=== PATIENT | male | born 1990 | race Caucasian/White ===

== ENCOUNTER 2016-12-23 21:11 | Emergency (ER) ==
[2016-12-23 21:14] VITALS: BP 148/104; TEMP 97.6; BMI 20.7
[2016-12-23] MEDS ORDERED: DEMEROL 25 MG/ML SYRINGE IVP STA (21:21)
[2016-12-23] MEDS ORDERED: ZOFRAN 4 MG/2 ML IVP STA (21:21)
[2016-12-23] MEDS ORDERED: SODIUM CHLORIDE 500 ML IV STA (21:21)
--- NOTE | 2016-12-23 21:25 | ED.PDOC ---
General ED Provider: Dr. KLEVER CARLOS Chief Complaint: Abdominal Pain Stated Complaint: Been hurting in the middle of the belly, cramping type, tight feeling. nausea and vomings Time Seen by Physician: 21:22 Mode of Arrival: Walk-In Information Source: Patient, Family Primary Care Provider: KLEVER CARLOS-[facility] Nursing and Triage Documentation Reviewed and Agree: Yes GI Complaint Exam - Abdominal Pain Complaint/Exam Onset: Gradual Symptoms Are: Still present Timing: Constant Initial Severity: Moderate Current Severity: Severe Location of Pain: Epigastric Radiates To: Reports: Back, Flank Character: Reports: Dull, Aching Aggravating: Reports: Movement, Food, Deep breaths Alleviating: Reports: None Associated Signs and Symptoms: Reports: Decreased urine output, Nausea, Vomiting. Denies: Diaphoresis, Fever, Cough, Chest pain, Dizziness, Back pain, Constipation, Blood in stool, Dysuria, Urinary frequency, Decreased appetite, Discharge, Diarrhea, Decreased activity AAA Risk Factors: Reports: None Cardiac Risk Factors: Reports: None Testicular Torsion Risk Factors: Reports: None Surgical Obstruction Risk Factors: Reports: None Related Surgical History: Reports: None Abdominal Findings: Absent: Pulsatile mass, Abdominal distention, Unequal femoral pulses Differential Diagnoses: Gastroenteritis, PUD Review of Systems - Review Of Systems Constitutional: Reports: Fever, Weakness Eyes: Reports: No symptoms Ears, Nose, Mouth, Throat: Reports: No symptoms Respiratory: Reports: No symptoms Cardiac: Reports: No symptoms GI: Reports: Abdominal pain, Nausea, Vomiting : Reports: No symptoms Musculoskeletal: Reports: No symptoms Skin: Reports: No symptoms Neurological: Reports: No symptoms Endocrine: Reports: No symptoms Hematologic/Lymphatic: Reports: No symptoms All Other Systems: Reviewed and Negative Past Medical History - Past Medical History Previously Healthy: Yes Endocrine: Reports: None Cardiovascular: Reports: None Respiratory: Reports: None Hematological: Reports: None Gastrointestinal: Reports: None Genitourinary: Reports: None Neuro/Psych: Reports: None Musculoskeletal: Reports: None Cancer: Reports: None - Surgical History General Surgical History: Reports: None - Family History Family History: Reports: Unknown - Social History Smoking Status: Current every day smoker Smoking Cessation Counseling Time: > 3 min - 10 min Hx Substance Use: No Alcohol Screening: None - Immunizations Tetanus Shot up to Date: Yes Physical Exam - Physical Exam Appearance: Ill-appearing, Thin Pain Distress: Moderate Eyes: EOMI, Conjunctiva clear ENT: Ears normal, Nose normal, Oropharynx normal Respiratory: Airway patent, Breath sounds clear, Breath sounds equal, Respirations nonlabored Cardiovascular: RRR, Pulses normal, No rub, No murmur GI/: Tender, Bowel sounds hypoactive Musculoskeletal: Normal strength, ROM intact, No edema, No calf tenderness Skin: Warm, Dry, Normal color Neurological: Sensation intact, Motor intact, Reflexes intact, Cranial nerves intact, Alert, Oriented Psychiatric: Affect appropriate, Mood appropriate Interpretation - Radiology Interpretation Radiology Interpretation By: Radiologist Radiology Results: Positive Exam Interpreted: CT Scan Physician Notification - Case Discussed Time of Notification: 22:43 (DR Jiménez.) Critical Care Note - Critical Care Note Total Time (mins): 0 Course - Course Hematology/Chemistry: 12/23/16 21:30 12/23/16 21:30 Orders, Labs, Meds: Lab Review 12/23/16 21:30 WBC 7.37 RBC 4.55 L Hgb 14.2 Hct 41.8 L MCV 91.9 MCH 31.2 H MCHC 34.0 RDW Coeff of [place] 13.2 Plt Count 261 Immature Gran % (Auto) 0.8 Neut % (Auto) 48.5 Lymph % (Auto) 34.2 [place] % (Auto) 12.5 H Eos % (Auto) 3.3 Baso % (Auto) 0.7 Immature Gran # (Auto) 0.1 Neut # 3.6 Lymph # 2.5 [place] # 0.9 Eos # 0.2 Baso # 0.1 Sodium 140 Potassium 4.4 Chloride 100 Carbon Dioxide 29 Anion Gap 15.4 BUN 13 Creatinine 1.05 Estimated GFR (MDRD) 85.00 BUN/Creatinine Ratio 12.38 Glucose 80 Calcium 9.1 Total Bilirubin 0.16 AST 28 ALT 33 Alkaline Phosphatase 123 Total Protein 7.9 Albumin 3.9 Globulin 4.0 Albumin/Globulin Ratio 0.98 Amylase 63 Lipase 46 Orders Category Date Time Status ED IV/MEDIPORT/POWERPORT .ONCE EMERGENCY 12/23/16 21:21 Active AMYLASE Stat LAB 12/23/16 21:30 Completed CBC W/ AUTO DIFF Stat LAB 12/23/16 21:30 Completed COMPREHENSIVE METABOLIC PANEL Stat LAB 12/23/16 21:30 Completed LIPASE Stat LAB 12/23/16 21:30 Completed UA [URINALYSIS C & S IF INDICATED] Stat LAB 12/23/16 22:35 Uncollected 0.9 % Sodium Chloride [Saline Flush] MEDS 12/23/16 21:21 Ordered 1 syr IVF PRN PRN Hydromorphone HCl/Pf [Dilaudid 2 mg/ml Syringe] MEDS 12/23/16 22:04 Discontinued 2 mg IVP ONCE STA Meperidine HCl/Pf [Demerol 25 mg/ml Syringe] MEDS 12/23/16 21:21 Discontinued 25 mg IVP ONCE STA Ondansetron HCl/Pf [Zofran 4 mg/2 ml] MEDS 12/23/16 21:21 Discontinued 4 mg IVP ONCE STA Piperacillin Sodium/Tazobactam [Zosyn 3.375 gm] 3.375 MEDS 12/23/16 22:17 Active gm 0.9 % Sodium Chloride [Sodium Chloride] 100 ml IV ONCE Sodium Chloride 0.9% [Sodium Chloride] 1,000 ml MEDS 12/23/16 22:17 Active IV 100 mls/hr Sodium Chloride 0.9% [Sodium Chloride] 500 ml MEDS 12/23/16 21:[address] ABDOMEN/PELVIS WO CONTRAST Stat RADS 12/23/16 21:21 Completed Medications Generic Name Dose Route Start Last Admin Trade Name Freq PRN Reason Stop Dose Admin Piperacillin Sod/Tazobactam 100 mls @ 100 mls/hr 12/23/16 22:17 12/23/16 22: 34 Sod 3.375 gm/ Sodium Chloride IV 12/23/16 23:16 100 mls/hr ONCE STA Administration Sodium Chloride 1,000 mls @ 100 mls/hr 12/23/16 22:17 12/23/16 22:35 Sodium Chloride IV 12/24/16 08:16 100 mls/hr .Q10H STA Administration Sodium Chloride 1 syr 12/23/16 21:21 Saline Flush IVF PRN PRN To flush IV Discontinued Medications Generic Name Dose Route Start Last Admin Trade Name Freq PRN Reason Stop Dose Admin Hydromorphone HCl 2 mg 12/23/16 22:04 12/23/16 22:15 Dilaudid 2 Mg/Ml Syringe IVP 12/23/16 22:05 2 mg ONCE STA Administration Sodium Chloride 500 mls @ 500 mls/hr 12/23/16 21:21 12/23/16 21:38 Sodium Chloride IV 12/23/16 22:20 500 mls/hr BOLUS STA Administration Meperidine HCl 25 mg 12/23/16 21:21 12/23/16 21:38 Demerol 25 Mg/Ml Syringe IVP 12/23/16 21:22 25 mg ONCE STA Administration Ondansetron HCl 4 mg 12/23/16 21:21 12/23/16 21:38 Zofran 4 Mg/2 Ml IVP 12/23/16 21:22 4 mg ONCE STA Administration Vital Signs: Temp Pulse Resp BP Pulse Ox 12/23/16 21:12 97.6 F 84 22 148/104 H 98 Departure - Departure Time of Disposition: 22:17 Disposition: TSF SHORT-TRM HOSP Discharge Problem: Perforated peptic ulcer, Gastric out let obstruction Instructions: Peptic Ulcer (ED) Condition: Stable Pt referred to PMD for follow-up: No Allergies/Adverse Reactions: Allergies No Known Allergies Allergy (Verified 12/23/16 21:16) Home Medications: Ambulatory Orders 1 [No Reported Medications] 02/24/16 Disposition Discussed With: Patient, Family
[2016-12-23 21:32] LABS: BASOPHILS # (AUTO) 0.1 K/uL (0-0.2); BASOPHILS % (AUTO) 0.7 % (0.0-3.0); EOSINOPHILS # (AUTO) 0.2 K/ul (0.0-0.7); EOSINOPHILS % (AUTO) 3.3 % (0.0-7.0); HEMATOCRIT 41.8 % (42.0-52.0); HEMOGLOBIN 14.2 g/dl (14.0-18.0); IMMATURE GRANULOCYTE % (AUTO) 0.8 % (0.0-5.0); LYMPHOCYTES # (AUTO) 2.5 K/uL (0.60-3.4); LYMPHOCYTES % (AUTO) 34.2 (10.0-50.0); MEAN CORPUSCULAR HEMOGLOBIN 31.2 pg (27.0-31.0); MEAN CORPUSCULAR VOLUME 91.9 fl (80.0-94.0); MONOCYTES # (AUTO) 0.9 K/uL (0.4-2.0); MONOCYTES % (AUTO) 12.5 (0-10); NEUTROPHILS # (AUTO) 3.6 K/ul (2.0-6.9); NEUTROPHILS % (AUTO) 48.5; PLATELET COUNT 261 10^3/uL (140-440); RED BLOOD COUNT 4.55 10^6/ul (4.70-6.10); WHITE BLOOD COUNT 7.37 K/ul (4.2-10.2)
[2016-12-23 21:52] LABS: ALBUMIN 3.9 g/dL (3.4-5.0); ALBUMIN/GLOBULIN RATIO 0.98; ANION GAP 15.4; BILIRUBIN,TOTAL 0.16 mg/dL (0.00-1.20); BUN/CREATININE RATIO 12.38; CALCIUM 9.1 mg/dL (8.2-10.2); CREATININE 1.05 mg/dL (0.60-1.10); POTASSIUM 4.4 mmol/L (3.5-5.1); TOTAL PROTEIN 7.9 g/dL (6.4-8.2)
[2016-12-23] MEDS ORDERED: DILAUDID 2 MG/ML SYRINGE IVP STA (22:04)
--- NOTE | 2016-12-23 22:06 | CT ---
Examination: CT abdomen and pelvis without contrast 12/23/2016 Clinical information: 1-week history of stomach pain. Comparison: 09/04/2014. TECHNIQUE: Noncontrast helical imaging from the lung bases to the symphysis pubis. 3 mm axial, sagi ttal and coronal images are submitted for review. FINDINGS: Axial images through the lung bases are unremarkable. The noncontrast CT appearance of t he liver, spleen, pancreas and adrenal glands is within normal limits. The gallbladder is contracte d. The kidneys are normal in size and configuration. Fairly marked distension of the stomach with food debris. No small bowel distension. Consider a ga stric outlet obstruction. There are several extraluminal free air collections within the brenna hepa tis and along the anterior margin of the stomach. Moderate amount retained stool within the colon. A normal retrocecal appendix is identified. No free fluid is seen within the abdomen or pelvis. M oderate retained stool within the rectum. Urinary bladder is unremarkable. Minimal S-shaped thorac olumbar scoliosis. Impression: 1. Fairly marked distension of the stomach with food debris. No small bowel distension. Consider g astric outlet obstruction. Free air collections within the brenna hepatis and along the ventral aspec t of the gastric body. Consider gastric antral ulcer or duodenal ulcer with perforation. Surgical c onsultation recommended. These findings were called to the emergency department on 12/23/2016 at 21 55 hours. 2. Moderate retained stool within the colon.
[2016-12-23] MEDS ORDERED: SODIUM CHLORIDE 1,000 ML IV STA (22:17)
[2016-12-23] MEDS ORDERED: ZOSYN 3.375 GM 3.375 GM in SODIUM CHLORIDE 100 ML IV STA (22:17)
== END 2016-12-23 23:05 | disposition short-term general hospital (02) ==
LOC: ED 21:11
DX: K27.5 Chronic or unspecified peptic ulcer, site unspecified, with perforation (principal); K31.1 Adult hypertrophic pyloric stenosis; F17.210 Nicotine dependence, cigarettes, uncomplicated
CPT/HCPCS: 36415; 80053; 82150; 83690; 85025; 96361; 96365; 96375; 99285

== ENCOUNTER 2016-12-23 23:07 | Outpatient (CLI) ==
[2016-12-23 21:14] VITALS: BMI 20.7
== END 2016-12-23 23:08 ==
LOC: AMBL 23:07
PROVIDERS: ATTEND Emergency Medicine
DX: R10.9 Unspecified abdominal pain (principal); K25.5 Chronic or unspecified gastric ulcer with perforation

== ENCOUNTER → 2016-12-23 | Outpatient (CLI) ==
[2016-12-23 21:14] VITALS: BMI 20.7
== END ==
LOC: AMBL 23:07
PROVIDERS: ATTEND Emergency Medicine
DX: R10.9 Unspecified abdominal pain (principal); K25.5 Chronic or unspecified gastric ulcer with perforation

== ENCOUNTER 2018-08-06 11:01 | Emergency (ER) | payer OTHER ==
[2018-08-06 11:06] VITALS: BP 131/82; TEMP 96.9; BMI 24.1
--- NOTE | 2018-08-06 11:51 | ED.PDOC ---
General ED Provider: Dr. ISABELLA PEDERSEN Chief Complaint: Extremity Swelling/Pain Stated Complaint: Rt Shoulder pain. Urinary hesitancy/urgency Time Seen by Physician: 11:40 Mode of Arrival: Walk-In Information Source: Patient Nursing and Triage Documentation Reviewed and Agree: Yes Does patient meet sepsis criteria?: No System Inflammatory Response Syndrome: Not Applicable Sepsis Protocol: For patient's 13 years and over: Temp is 96.8 and below OR 101 and greater Pulse >90 BPM Resp >20/minute Acutely Altered Mental Status Are patient's symptoms suggestive of a new infection, such as: -Pneumonia -Skin, Soft Tissue -Endocarditis -UTI -Bone, Joint Infection -Implantable Device -Acute Abdominal Infection -Wound Infection -Meningitis -Blood Stream Catheter Infection -Unknown Musculoskeletal Complaint Exam - Shoulder Pain Complaint/Exam Mechanism of Injury: Reports: No known trauma Onset/Duration: THis AM upon awakening Symptoms Are: Still present Timing: Intermittent Initial Severity: Moderate Current Severity: Moderate Location: Reports: Discrete Character: Reports: Dull, Aching Alleviating: Reports: Rest Aggravating: Reports: Movement, Lifting Associated Signs and Symptoms: Denies: Swelling, Redness, Bruising, Fever, Weakness, Numbness, Tingling Related History: Denies: Similar episode Non-Orthopedic Risk Factors: Reports: None DVT Risk Factors: Reports: None Septic Arthritis Risk Factors: Reports: None Related Surgical History: Reports: None Shoulder Findings: Absent: Swelling, Ecchymosis, Abnormal contour, Rotation, Ligamentous instability, Erythema, Warmth, Blisters, Foreign body Tenderness: Present: Proximal humerus, Rotator cuff muscles Limited Range of Motion: Absent: Abduction, Adduction, Flexion, Extension, Internal rotation, External rotation, Rotator cuff muscles, Rotator cuff insertion Differential Diagnoses: Strain Review of Systems - Review Of Systems Constitutional: Reports: No symptoms Eyes: Reports: No symptoms Ears, Nose, Mouth, Throat: Reports: No symptoms Respiratory: Reports: No symptoms Cardiac: Reports: No symptoms GI: Reports: No symptoms : Reports: Urgency Musculoskeletal: Reports: No symptoms, Joint pain, Joint swelling Skin: Reports: No symptoms Neurological: Reports: No symptoms Endocrine: Reports: No symptoms Hematologic/Lymphatic: Reports: No symptoms All Other Systems: Reviewed and Negative Past Medical History - Past Medical History Previously Healthy: Yes Endocrine: Reports: None Cardiovascular: Reports: None Respiratory: Reports: None Hematological: Reports: None Gastrointestinal: Reports: None Genitourinary: Reports: None Neuro/Psych: Reports: None Musculoskeletal: Reports: None Cancer: Reports: None - Surgical History General Surgical History: Reports: None - Family History Family History: Reports: Unknown - Social History Smoking Status: Current every day smoker Hx Substance Use: Yes (off "dope" for 2 months) Alcohol Screening: None Physical Exam - Physical Exam Appearance: Well-appearing, No pain distress, Well-nourished Eyes: TAY, EOMI, Conjunctiva clear ENT: Ears normal, Nose normal, Oropharynx normal Respiratory: Airway patent, Breath sounds clear, Breath sounds equal, Respirations nonlabored Cardiovascular: RRR, Pulses normal, No rub, No murmur GI/: Soft, Nontender, No masses, Bowel sounds normal, No Organomegaly Musculoskeletal: Normal strength, ROM intact, No edema, No calf tenderness Skin: Warm, Dry, Normal color Neurological: Sensation intact, Motor intact, Reflexes intact, Cranial nerves intact, Alert, Oriented Psychiatric: Affect appropriate, Mood appropriate Critical Care Note - Critical Care Note Total Time (mins): 0 Course - Course Orders, Labs, Meds: Lab Review 08/06/18 08/06/18 12:25 13:18 Urine Color Yellow Urine Clarity Clear Urine pH 7.5 Ur Specific [place] 1.015 Urine Protein Negative Urine Glucose (UA) Negative Urine Ketones Negative Urine Blood Negative Urine Nitrite Negative Urine Bilirubin Negative Urine Urobilinogen 0.2 Ur Leukocyte Esterase Negative C.trachomatis DNA (SANDRA) Negative N.gonorrhoeae DNA (SANDRA) Negative Orders Category Date Time Status CHLAMYDIA/GC AMPLIFICATION Stat LAB 08/06/18 13:18 Completed UA [URINALYSIS C & S IF INDICATED] Stat LAB 08/06/18 12:25 Completed SHOULDER, RIGHT MIN 2V Stat RADS 08/06/18 11:52 Completed Vital Signs: Temp Pulse Resp BP Pulse Ox 08/06/18 11:01 96.9 F L 74 16 131/82 97 Departure - Departure Time of Disposition: 13:15 Disposition: HOME SELF-CARE Discharge Problem: Arthralgia of shoulder region, right, Urinary hesitancy, Urethritis Instructions: Nonspecific Urethritis in Men (ED), Arthralgia (ED) Condition: Good Pt referred to PMD for follow-up: Yes IPMP verified?: No Additional Instructions: Take meds Use condoms when sexually active follow up pcp Prescriptions: Azithromycin 500 mg PO ONCE #2 tablet Ibuprofen [Ibu] 600 mg PO QID PRN #20 tablet PRN Reason: Joint Pain Tamsulosin HCl [Flomax] 0.4 mg PO DAILY #3 cap.er.24h Allergies/Adverse Reactions: Allergies No Known Allergies Allergy (Verified 08/06/18 11:06) Home Medications: Ambulatory Orders Azithromycin 500 mg PO ONCE #2 tablet 08/06/18 Ibuprofen [Ibu] 600 mg PO QID PRN #20 tablet 08/06/18 Tamsulosin HCl [Flomax] 0.4 mg PO DAILY #3 cap.er.24h 08/06/18 Disposition Discussed With: Patient, Family
--- NOTE | 2018-08-06 15:29 | DI ---
Exam: Two-view right shoulder. Date: 08/06/2018. Comparison: None. HISTORY: Right shoulder and arm pain. FINDINGS: The soft tissues are within normal limits. The mineralization is normal. The bones are i ntact and the joint spaces are preserved. Impression: No acute osseous abnormality in the right shoulder.
== END 2018-08-06 13:53 | disposition home or self-care (01) ==
LOC: ED 11:01
DX: M25.511 Pain in right shoulder (principal); N34.2 Other urethritis; R39.11 Hesitancy of micturition; F17.210 Nicotine dependence, cigarettes, uncomplicated
CPT/HCPCS: 36415; 81001; 87800; 99283